=== PATIENT | male | born 1955 | race Caucasian/White ===

== ENCOUNTER 2018-07-27 07:30 | Outpatient (RCR) | payer MEDICARE, BC ==
[2018-07-20 09:54] VITALS: BP 118/82
[2018-07-20 09:55] VITALS: BP 120/88
--- NOTE | 2018-07-20 11:50 | CARDIAC REHAB PLAN OF CARE ---
Physician: Shyam HENAO Patient is being seen: Rafi Clark Medical Diagnosis: NSTEMI, Stent x 8 Date of Initial Evaluation: July 20, 2018 Short Term Goals Due Date: 08/20/18 Short Term Goals: Patient Assessment: Patient is a 62 year old male that is coming to cardiac rehab after starting a cardiac rehab phase II program in [place], and now has moved to [place] and would like to continue in a Phase II program. 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 Patient also stated that in 2018 he was told he had Atrial Fibrillation, however nothing received in the medical records verifies this and today on the manager monitoring the Lead II look revealed a NSR, p-waves present, and R-R measurement was without variation and consistently regular. Patients other health history is also remarkable and includes Asthma controlled by an Albuterol inhaler and/or Prednisone use. Shoulder pain (Left should rotator cuff surgery), Left wrist surgery, Left knee replacement, L-Spine disk degeneration. Exercise Assessment: During his 6 minute walk test he was able to cover 1270 feet, at 2.4 mph, and 2.8 METs. SPO2 at 93-94% room air, and the manager monitoring showed a SR, T-waves were not evident or very slightly negative in Lead II, without ectopy and rates of 87-94. He tolerated it well with the BHARTI RPE scale at 11 at the start and 12 at the completion of the test. Patient comes to cardiac rehab with a history of prior exercise and an active lifestyle with daily walks and hunting during the Fall. Patient is 5'9" and 160 pounds, with a BMI of 23.6 kg/m2. Exercise Plan: Goals: Are to continue to achieve a minimum 150 minutes a week of a moderate level (3.0-6.0 METs) of aerobic exercise with weight resistence at least twice a week. Exercise Prescription: Mode: Treadmill, NuStep, and Arm ergometer if should pain is minimal on that day. Frequency: 3 days/week (MWF) Duration: 25-40 minutes of aerobic exercise; 15-20 minutes of strength training and stretching. Intensity: Patient shows up with good motivation to exercise and is already doing some exercise nearly daily. We can start him with 25-40 minutes of cardio exercise with this actually being his 12th session of a phase II program. Exercise Reassessment (Date: ): Exercise Discharge/Follow-Up (Date: ): Nutrition Assessment: The patient reports eating healthy most of the time, and that is enjoys cooking and preparing healthy meals with lots of vegitables, fruit, and healthy, lean protein. Nutrition Plan: Goals: The goals with be to continue to educate and exchange information about his dietary intake and make any small adjustments needed for a better lipid profile, and to also include cutting sodium intake with some changes. Intervention: Will be to include information of the best foods for nutrient dense, and include fiber, while also reducing sugars and refined carbohydrates as much as possible. Nutrition Reassessment (Date: ): Nutrition Discharge/Follow-Up (Date: ): Psychosocial Assessment: The patient has a very positive attitude and scored in the normal range for depression (2/21), and anxiety (3/21) on the HADS scale. Psychosocial Plan: Goals: Our patient has a very good support system at home with his cooking healthy and also enjoying going for walks daily with him. Our goals will be to just continue encouraging healthy eating and positive social interaction and achieving exercise goals to make an overall improvement in his health. Psychosocial Reassessment (Date: ): Psychosocial Discharge/Follow-Up (Date: ): Physician Signature: Date: MTDD
[2018-07-25 17:33] VITALS: BP 118/80
[2018-07-25 17:35] VITALS: BP 100/70
[2018-07-27 17:14] VITALS: BP 120/80
[2018-07-27 17:17] VITALS: BP 92/62
== END 2018-07-27 18:00 | disposition home or self-care (01) ==
LOC: CARD 07:30
PROVIDERS: ATTEND Internal Medicine Cardiovascular Disease
DX: I25.2 Old myocardial infarction (principal)
CPT/HCPCS: 93798